=== PATIENT | male | born 1990 | race Caucasian/White ===

== ENCOUNTER 2018-06-19 07:59 | Emergency (ER) | payer OTHER ==
[~2018-06-19] VITALS: Ht 172.7 cm; Wt 77.1 kg
[~2018-06-19 07:59] MED LIST: NAPROXEN500 MG PO; ORPH100T PO
== END 2018-06-19 13:26 | disposition home or self-care (01) ==
LOC: ER 07:59
DX: K29.70 Gastritis, unspecified, without bleeding (principal); R13.19 Other dysphagia

== ENCOUNTER → 2019-02-26 | Emergency (ER) | payer OTHER ==
[~2019-02-26] VITALS: Ht 172.7 cm; Wt 76.7 kg
== END | disposition home or self-care (01) ==
LOC: ER 10:27
DX: R10.32 Left lower quadrant pain (principal)

== ENCOUNTER 2019-05-21 09:58 | Emergency (ER) | payer OTHER ==
[~2019-05-21] VITALS: Ht 172.7 cm; Wt 75.3 kg
== END 2019-05-21 14:29 | disposition home or self-care (01) ==
LOC: ER 09:58
DX: R51 Headache (principal)

== ENCOUNTER 2019-12-16 11:05 | Emergency (ER) | payer OTHER ==
[~2019-12-16] VITALS: Ht 172.7 cm; Wt 79.4 kg
[2019-12-16] MEDS ORDERED: ZITHROMAX500 MG PO (14:28)
[2019-12-16] MEDS ORDERED: TUSSI PRES-B L480 ML PO (14:28)
[2019-12-16] MEDS ORDERED: NORFLEX100MG PO (14:31)
== END 2019-12-16 14:40 | disposition home or self-care (01) ==
LOC: ER 11:05
DX: B34.9 Viral infection, unspecified (principal); M54.2 Cervicalgia; R07.89 Other chest pain; F41.8 Other specified anxiety disorders; B96.0 Mycoplasma pneumoniae [M. pneumoniae] as the cause of diseases classified elsewhere

== ENCOUNTER 2020-08-17 13:34 | Outpatient (CLI) | payer OTHER ==
[~2020-08-17 13:34] MED LIST changes: +NORFLEX100MG PO; +TUSSI PRES-B L480 ML PO; +ZITHROMAX500 MG PO
== END 2020-08-17 13:40 | disposition home or self-care (01) ==
LOC: MRI 13:34
PROVIDERS: ATTEND Physical Medicine & Rehabilitation
DX: M54.12 Radiculopathy, cervical region (principal); M50.00 Cervical disc disorder with myelopathy, unspecified cervical region
CPT/HCPCS: 72141